=== PATIENT | male | born 1955 | race Caucasian/White ===

== ENCOUNTER 2020-12-07 08:25 | Outpatient (CLI) | payer OTHER | END 2020-12-07 08:31 | disposition home or self-care (01) | LOC: LAB 08:25 | PROVIDERS: ATTEND Orthopaedic Surgery | DX: E83.42 Hypomagnesemia (principal); M85.89 Other specified disorders of bone density and structure, multiple sites; E88.89 Other specified metabolic disorders; M81.8 Other osteoporosis without current pathological fracture; E56.1 Deficiency of vitamin K ==